=== PATIENT | female | born 1945 | race Caucasian/White ===

== ENCOUNTER 2021-02-01 11:05 | Emergency (ER) | payer SELFPAY ==
[~2021-02-01] VITALS: Ht 160 cm; Wt 53.0 kg
--- NOTE | 2021-02-01 11:44 | NUR ---
ASSUMED CARE OF PT AT THIS TIME FROM [facility]. DR. PAL AT BEDSIDE FOR EVALUATION. 76 Y/O F PRESENTS STATING "RASH, REDNESS, ITCHING ALL OF MY BODY FOR 10 DAYS, MY HEAD WORSE, EVERYWHERE ELSE ABOUT 2 DAYS, HAVE PSOARISIS." ERYTHEMA NOTED TO FACE, TRUNK, UPPER BACK, ARMS, SCALP. MINIMAL ERYTHEMA TO BILATERAL LOWER EXTREMITIES. A&OX4. VSS. NAD NOTED. RESP REGULAR AND UNLABORED. DENIES ANY RESPIRATORY DISTRESS OR BREATHING DIFFICULTY. AIRWAY PATENT, ABLE TO SWALLOW AND CLEAR OWN SECRETIONS WITHOUT ANY DIFFICULTY. CALL LIGHT IN REACH. FALL PRECUATIONS IN PLACE.
[2021-02-01] MEDS ORDERED: ACET325T14 PO (11:52)
--- NOTE | 2021-02-01 12:05 | NUR ---
REPORT AND CARE TO BREAK ISRRAEL NEWTON AT THIS TIME
--- NOTE | 2021-02-01 12:30 | NUR ---
REPORT AND CARE BACK FROM [facility], WHO MEDICATED PT PER MD AND CHECKED FSBS. FSBS 97 PER [facility]. DISCUSSED WITH DR. PAL, AWARE, PT CLEARED FROM DISCHARGE FROM ERP. AWAITING DISCHARGE PAPERS FROM ERP.
[2021-02-01 13:31] VITALS: BP 156/75
== END 2021-02-01 13:54 | disposition home or self-care (01) ==
LOC: ED 13:42
DX: L20.84 Intrinsic (allergic) eczema (principal); L50.9 Urticaria, unspecified
CPT/HCPCS: 82962; 99283; Q0177